=== PATIENT | female | born 1940 | race Caucasian/White ===

== ENCOUNTER → 2017-10-20 | Outpatient (CLI) | payer MEDICARE ==
--- NOTE | 2017-10-25 15:45 | Pulmonary Function Test ---
DATE OF STUDY: October 20, 2017 SPIROMETRY: Spirometry demonstrates normal findings. FEV1 of 1.80 liters or 88% predicted with FVC of 2.32 liters or 85% predicted were noted with normal FEV1/FVC ratio. After bronchodilator administration, there was no statistically significant change in spirometry. Flow volume loop was unremarkable. LUNG VOLUMES: Lung volumes as measured by nitrogen washout method demonstrate no evidence of restriction with normal TLC of 4.24 liters or 88% predicted. DIFFUSION CAPACITY: Diffusion capacity was moderately decreased at 9.47 mL/mmHg per minute or 45% predicted. SUMMARY: Isolated moderate diffusion defect. This is most often seen in anemia, pulmonary vascular disorders, or early restrictive condition or early emphysema. Clinical correlation is recommended. Job#: [id number] VAS
== END ==
LOC: RESP 10:06
PROVIDERS: ATTEND Internal Medicine Critical Care Medicine
DX: J18.9 Pneumonia, unspecified organism (principal); J30.9 Allergic rhinitis, unspecified; J47.9 Bronchiectasis, uncomplicated; Z87.891 Personal history of nicotine dependence
CPT/HCPCS: 94060; 94727; 94729